=== PATIENT | female | born 1975 | race American Indian/Alaskan Native ===

== ENCOUNTER 2018-09-04 09:20 | Observation (INO) | payer MEDICAID, OTHER ==
[2018-09-04 09:49] LABS: Basophils # (Auto) 0.2 K/mm3 (0.0-0.1); Basophils % (Auto) 1.2 % (0.0-1.8); Eosinophils # (Auto) 0.1 K/mm3 (0.0-0.4); Eosinophils % (Auto) 0.8 % (0.0-4.3); Lymphocytes # (Auto) 1.4 K/mm3 (1.2-5.4); Lymphocytes % (Auto) 10.9 % (13.4-35.0); Mean Corpuscular HGB Conc 27 % (30-34); Monocytes # (Auto) 0.6 K/mm3 (0.0-0.8); Monocytes % (Auto) 4.9 % (0.0-7.3); Platelet Count 600 K/mm3 (140-440)
[2018-09-04 09:59] LABS: Hematocrit 16.4 % (30.3-42.9); Hemoglobin 4.4 gm/dl (10.1-14.3); Mean Corpuscular Volume 57 fl (79-97); Red Cell Distribution Width 21.9 % (13.2-15.2)
[2018-09-04] MEDS ORDERED: NACL 0.9% 500 ML 500 ML IV ONE (10:06)
[2018-09-04 10:35] LABS: Color,Urine Red (Yellow)
[2018-09-04 10:36] LABS: Bilirubin,Urine NEG (Negative); Blood,Urine LG (Negative); Mucus,Urine FEW /HPF; Urobilinogen,Urine < 2.0 mg/dL (<2.0)
[2018-09-04 10:44] LABS: Protein,Urine >500 mg/dL (Negative); RBC,Urine > 182.0 /HPF (0.0-6.0); WBC,Urine < 1.0 /HPF (0.0-6.0)
[2018-09-04] MEDS ORDERED: TORADOL IV ONE ×2 (11:06→11:27)
[2018-09-04] MEDS ORDERED: PERCOCET 5/325 PO ONE (11:07)
--- NOTE | 2018-09-04 11:13 | Emergency Department Report ---
ED General Adult HPI - General Chief complaint: Dizziness Stated complaint: DIZZINESS Time Seen by Provider: 09/04/18 10:00 Source: patient, RN notes reviewed Mode of arrival: Ambulatory Limitations: No Limitations - History of Present Illness Initial comments: This is a 43-year-old female. The patient is not known to this provider previously The patient moved here from [place]. She does not have a primary care doctor. 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 She has a history of fibroids. She is taking iron sulfate supplementation, as well as oral contraceptives. She presents to the emergency room today with complaint of crampy vaginal bleeding. bleeding is present for 4 months. It is associated with nontraumatic lower back pain The patient describes heavy vaginal bleeding and clots, lightheadedness, fatigue, malaise, shortness of breath. Her symptoms are constant, and the worsening with physical exertion and decreased with rest. She has not been able to follow up as an outpatient secondary to insurance issues. She reports that she is amenable to packed red blood cell transfusion. She reports that she is not . -: Sudden, month(s) Location: back, abdomen Severity scale (0 -10): 8 Quality: aching Consistency: other Improves with: other Worsens with: other - Related Data Allergies Allergy/AdvReac Type Severity Reaction Status Date / Time No Known Allergies Allergy Unverified 09/04/18 09:23 ED Review of Systems ROS: Stated complaint: DIZZINESS Other details as noted in HPI Constitutional: malaise, weakness Eyes: denies: vision change ENT: denies: epistaxis Respiratory: denies: cough Cardiovascular: syncope Gastrointestinal: abdominal pain. denies: vomiting Genitourinary: abnormal menses Musculoskeletal: back pain Skin: denies: lesions Neurological: weakness Psychiatric: anxiety ED Past Medical Hx - Past Medical History Hx Hypertension: Yes Additional medical history: fibroids, anemia - Surgical History Hx Appendectomy: Yes Additional Surgical History: left leg, tubal ligation - Social History Smoking Status: Former Smoker Substance Use Type: Alcohol, Marijuana ED Physical Exam - General Limitations: No Limitations General appearance: alert, anxious, in distress - Head Head exam: Present: atraumatic, normocephalic - Eye Eye exam: Present: normal appearance, EOMI, other (bilateral conjunctiva are noted to be pale). Absent: nystagmus - ENT ENT exam: Present: normal exam, normal orophraynx, mucous membranes moist, normal external ear exam - Neck Neck exam: Present: normal inspection, full ROM. Absent: tenderness, meningismus - Respiratory Respiratory exam: Present: normal lung sounds bilaterally. Absent: respiratory distress, wheezes, rales, rhonchi, stridor, chest wall tenderness - Cardiovascular Cardiovascular Exam: Present: normal rhythm, tachycardia, normal heart sounds. Absent: systolic murmur, diastolic murmur, rubs, gallop - GI/Abdominal GI/Abdominal exam: Present: soft. Absent: distended, tenderness, guarding, rebound, rigid, pulsatile mass - Rectal Rectal exam: Present: other (chaperoned by nurse Chantell Bonilla) - External exam: Present: normal external exam. Absent: erythema, swelling Speculum exam: Absent: vaginal bleeding - Extremities Exam Extremities exam: Present: normal inspection, full ROM, other (delayed capillary refill noted). Absent: tenderness, normal capillary refill (2+ pulses noted in the bilateral upper, lower extremities. Compartments soft. No long bony tenderness. The pelvis is stable.), pedal edema, joint swelling - Back Exam Back exam: Present: normal inspection, full ROM. Absent: tenderness, CVA tenderness (R), paraspinal tenderness, vertebral tenderness - Neurological Exam Neurological exam: Present: alert, other (Extraocular movements intact. Tongue midline. No facial droop. Facial sensation intact to light touch in the V1, V2, V3 distribution bilaterally. 5 and 5 strength in 4 extremities.. Sensation is intact to light touch in 4 extremities.). Absent: motor sensory deficit - Psychiatric Psychiatric exam: Present: anxious - Skin Skin exam: Present: warm, dry, intact, normal color. Absent: rash ED Course Vital Signs 09/04/18 09/04/18 09/04/18 09:30 10:01 10:15 Temperature 98.1 F Pulse Rate 118 H 93 H 92 H Respiratory 20 14 15 Rate Blood Pressure 131/86 Blood Pressure 135/78 [Right] O2 Sat by Pulse 100 100 Oximetry 09/04/18 09/04/18 09/04/18 10:30 10:45 11:01 Temperature Pulse Rate 87 109 H 117 H Respiratory 12 12 17 Rate Blood Pressure 135/76 135/76 134/62 Blood Pressure [Right] O2 Sat by Pulse 99 97 Oximetry 09/04/18 09/04/18 11:15 11:30 Temperature Pulse Rate 93 H 109 H Respiratory 8 L 16 Rate Blood Pressure 134/62 132/63 Blood Pressure [Right] O2 Sat by Pulse 100 98 Oximetry - Reevaluation(s) Reevaluation #1: 09/04/18 11:15 Differential diagnosis, including but not limited to: Symptomatic anemia, fibroids, dehydration, electrolyte derangement Assessment and plan: 43-year-old female with history and physical examination suggesting symptomatic anemia, likely secondary to chronic vaginal bleeding, presumed reported fibroids. Patient is hemodynamically stable. Tachycardia resolved. Belly soft on repeat exam. No active bleeding noted. She is amenable to packed red blood cell transfusions. Additional screening laboratory studies have been requested. Transvaginal ultrasound has been ordered. Dr. Tavera of the gynecology service to admit the patient for symptomatic ane katie. ED Medical Decision Making - Lab Data Result diagrams: 09/04/18 09:31 09/04/18 10:39 Vital Signs 09/04/18 09:30 Temperature 98.1 F Pulse Rate 118 H Respiratory 20 Rate Blood Pressure 135/78 [Right] O2 Sat by Pulse 100 Oximetry Lab Results 09/04/18 09/04/18 Range/Units 09:31 10:06 WBC 12.7 H (4.5-11.0) K/mm3 RBC 2.90 L (3.65-5.03) M/mm3 Hgb 4.4 L* (10.1-14.3) gm/dl Hct 16.4 L* (30.3-42.9) % MCV 57 L (79-97) fl MCH 15 L (28-32) pg MCHC 27 L (30-34) % RDW 21.9 H (13.2-15.2) % Plt Count 600 H (140-440) K/mm3 Lymph % (Auto) 10.9 L (13.4-35.0) % [place] % (Auto) 4.9 (0.0-7.3) % Eos % (Auto) 0.8 (0.0-4.3) % Baso % (Auto) 1.2 (0.0-1.8) % Lymph # 1.4 (1.2-5.4) K/mm3 [place] # 0.6 (0.0-0.8) K/mm3 Eos # 0.1 (0.0-0.4) K/mm3 Baso # 0.2 H (0.0-0.1) K/mm3 Seg Neutrophils % 82.2 H (40.0-70.0) % Seg Neutrophils # 10.5 H (1.8-7.7) K/mm3 Urine Color Red (Yellow) Urine Turbidity Cloudy (Clear) Urine pH 6.0 (5.0-7.0) Ur Specific [place] 1.030 (1.003-1.030) Urine Protein >500 (Negative) mg/dL Urine Glucose (UA) 50 (Negative) mg/dL Urine Ketones Tr (Negative) mg/dL Urine Blood Lg (Negative) Urine Nitrite Neg (Negative) Urine Bilirubin Neg (Negative) Urine Urobilinogen < 2.0 (<2.0) mg/dL Ur Leukocyte Esterase Neg (Negative) Urine WBC (Auto) < 1.0 (0.0-6.0) /HPF Urine RBC (Auto) > 182.0 (0.0-6.0) /HPF U Epithel Cells (Auto) 6.0 (0-13.0) /HPF Urine Mucus Few /HPF - EKG Data -: EKG Interpreted by Ny EKG shows normal: sinus rhythm Rate: normal - EKG Data When compared to previous EKG there are: previous EKG unavailable 09/04/18 11:13 This is a sinus rhythm, 84 bpm, normal axis, QTC prolonged, borderline high left ventricular voltage, not having chest pain, this is an abnormal EKG. This is n ot consistent with ST elevation myocardial infarction. - Radiology Data Radiology results: pending, report reviewed, image reviewed Print Report Referring Physician: KATERINE JIN Patient Name: SCOOTER MORENO Date of : 1975 Sex: Female Report Date: 2018-09-04 Report Status: Finalized Findings [facility] [address] [place] [address] Ultrasound Report Signed Patient: SCOOTER MORENO MR#: [id number] : 1975 Acct:[id number] Age/Sex: 43 / F ADM Date: 09/04/18 Loc: ED Attending Dr: Ordering Physician: KATERINE JIN MD Date of Service: 09/04/18 Procedure(s): US transvaginal Accession Number(s): [id number] cc: KATERINE JIN MD Contrast vaginal sonography: History: Vaginal bleeding. Findings: Uterus dasia 11.5 x 7.6 x 8 cm. Endometrial thickness 10 mm. There is a central mass identified within the uterus involving the endometrium and measuring 5 x 6.7 x 6.4 cm. Predominantly solid. Right ovary 2.4 x 1.7 x 2.9 cm. No mass. Left ovary 3.5 a 1.4 x 2.7 cm. No mass. No fluid in the cul-de-sac. Impression: Mass within the central part of the body of the uterus near the fundus. Further evaluation recommended. Transcribed By: PTP Dictated By: NEVA BARNETT MD Electronically Authenticated By: NEVA BARNETT MD Signed Date/Time: 09/04/18 1231 Critical Care Time: Yes Critical care time in (mins) excluding proc time.: 35 Critical care attestation.: If time is entered above; I have spent that time in minutes in the direct care of this critically ill patient, excluding procedure time. ED Disposition Clinical Impression: Symptomatic anemia, Vaginal bleeding Disposition: DC-09 OP ADMIT IP TO THIS HOSP Is pt being admited?: Yes Condition: Good Referrals: VALENTÍN NUNEZ MD [Primary Care Provider] - 3-5 Days
[2018-09-04 11:19] LABS: INR 0.89 (0.87-1.13)
[2018-09-04 11:38] LABS: BUN/Creatinine Ratio 17; Blood Urea Nitrogen 12 mg/dL (7-17); Calcium 8.8 mg/dL (8.4-10.2); Hemolysis Index 0
--- NOTE | 2018-09-04 12:52 | Ultrasound Report ---
Contrast vaginal sonography: History: Vaginal bleeding. Findings: Uterus dasia 11.5 x 7.6 x 8 cm. Endometrial thickness 10 mm. There is a central mass identified within the uterus involving the endometrium and measuring 5 x 6.7 x 6.4 cm. Predominantly solid. Right ovary 2.4 x 1.7 x 2.9 cm. No mass. Left ovary 3.5 a 1.4 x 2.7 cm. No mass. No fluid in the cul-de-sac. Impression: Mass within the central part of the body of the uterus near the fundus. Further evaluation recommended.
[2018-09-04] MEDS ORDERED: NACL 0.9% 250ML 250 ML ONE (14:43)
[2018-09-04] MEDS ORDERED: TYLENOL PO PRN (14:47)
[2018-09-04] MEDS ORDERED: ALUM-MAG HYDROX-SIMETH 200-200-20MG/5ML PO PRN (14:47)
[2018-09-04] MEDS ORDERED: SODIUM CHLORIDE FLUSH SYRINGE 10 ML IV PRN (14:47)
[2018-09-04] MEDS ORDERED: NACL 0.9% 1000 ML 1,000 ML IV SCH (14:47)
--- NOTE | 2018-09-04 16:25 | Short Stay Summary ---
<MARIANGEL THOMAS G - Last Filed: 09/04/18 17:09> Short Stay Documentation Date of service: 09/04/18 Narrative H&P: 43 YOBF seen in ER with c/o long h/o menorrhagia with receently passing large clots. Patient states she has had vaginal bleeding increased over the past 2 months. Work up in ER revealed h/h of 4.4/16.4 and pelvic ultrasound with a central uterine mass measuring 5.0x6.7x6.4cm. 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 Patient is being admitted for blood transfusion - History Past Medical History: hypertension, other (Fibroids dx 01/2018) Past Surgical History: appendectomy (Laparotomy ), Other (Left femur (dana in place, [facility] Cholecystectomy, LTL(2004)) Social history: smoking (Quit 2017 after 20 yr use), full code - Allergies and Medications Current Medications: Allergies No Known Allergies Allergy (Unverified 09/04/18 09:23) Active Medications Acetaminophen (Tylenol) 650 mg PO Q4H PRN PRN Reason: Pain MILD(1-3)/Fever >100.5/ECKERT Al Hydrox/Mg Hydrox/Simethicone (Alum-Mag Hydrox-Simeth [id number]/5ml) 30 ml PO Q4H PRN PRN Reason: Indigestion Sodium Chloride (Nacl 0.9% 1000 Ml) 1,000 mls @ 75 mls/hr IV DIRECT ROSALBA Sodium Chloride (Sodium Chloride Flush Syringe 10 Ml) 10 ml IV PRN PRN PRN Reason: LINE FLUSH - Physical exam General appearance: no acute distress Integumentary: no rash Breasts: deferred Heart: Regular rate Gastrointestinal: normal (Soft), normoactive bowel sounds, no tenderness, no guarding, obese, other Female Genitourinary: other (Done in ER no heavy bleeding noted. Presently no blood on her pad x3 hours) Rectal Exam: deferred Extremities: No edema - Disposition Condition at discharge: Good Disposition: DC-01 TO HOME OR SELFCARE - Discharge Diagnoses (1) Symptomatic anemia Status: Acute Comment: Probably secondary to #2. Will transfuse 4 units of PRBCs (2) Vaginal bleeding Status: Acute Comment: Probably secondary to myomas. Bleeding is light at present (3) Mass of uterus determined by ultrasound Status: Acute Comment: Discussed diagnosis and need follow up as outpatient. Our office infromation given (4) Hypertension Status: Acute Qualifiers: Hypertension type: essential hypertension Qualified Code(s): I10 - Essential (primary) hypertension Comment: Will continue her present medications Short Stay Discharge Plan Follow up with: VALENTÍN NUNEZ MD [Primary Care Provider] - 3-5 Days MARIANGEL THOMAS MD [Staff Physician] - 7 Days Prescriptions: Ferrous Sulfate [Ferrous Sulfate 324 MG] 324 mg PO TID #90 tablet. <EL KING - Last Filed: 09/05/18 12:10> Short Stay Documentation - History Past Medical History: other Past Surgical History: Other Social history: smoking - Allergies and Medications Current Medications: Allergies No Known Allergies Allergy (Unverified 09/04/18 09:23) Home Medications Medication Instructions Recorded Confirmed Last Taken Type Blisovi Fe 1.5-30 Tablet 1 tab QDAY 09/04/18 09/04/18 Unknown History Ferrous Sulfate [Ferrous Sulfate 324 mg PO TID 09/04/18 09/04/18 Unknown History 324 MG] hydroCHLOROthiazide [HCTZ] 25 mg PO QDAY 09/04/18 09/04/18 Unknown History Active Medications Acetaminophen (Tylenol) 650 mg PO Q4H PRN PRN Reason: Pain MILD(1-3)/Fever >100.5/ECKERT Al Hydrox/Mg Hydrox/Simethicone (Alum-Mag Hydrox-Simeth [phone]/5ml) 30 ml PO Q4H PRN PRN Reason: Indigestion Sodium Chloride (Nacl 0.9% 1000 Ml) 1,000 mls @ 75 mls/hr IV DIRECT [facility] Miscellaneous Medication (Blisovi Fe 1.5-30 Tablet) 1 tab PO QDAY [facility] Last Admin: 09/05/18 10:12 Dose: 1 tab Documented by: Miscellaneous Medication (Ferrous Sulfate [Ferrous Sulfate 324 Mg]) 324 mg PO TID [facility] Last Admin: 09/05/18 10:11 Dose: 324 mg Documented by: Miscellaneous Medication (Hydrochlorothiazide [Hctz]) 25 mg PO QDAY [facility] Last Admin: 09/05/18 10:12 Dose: 25 mg Documented by: Sodium Chloride (Sodium Chloride Flush Syringe 10 Ml) 10 ml IV PRN PRN PRN Reason: LINE FLUSH - Hospital course Hospital course: She was admitted and received 4uPRBCs with an appropriate rise in h/h. No complaints today, no distress, she has moderate amount of blood on pad. - Discharge Diagnoses (1) Menorrhagia Status: Chronic Comment: Continue current hormonal therapy (2) Hypertension Status: Chronic Qualifiers: Hypertension type: essential hypertension Qualified Code(s): I10 - [facility] ([facility] hypertension Comment: Will continue her present medications (3) Mass of uterus determined by ultrasound Status: Chronic Comment: Discussed diagnosis and need follow up as outpatient. Our office infromation given (4) Symptomatic anemia Status: Chronic Comment: Probably secondary to #2. Will transfuse 4 units of PRBCs Short Stay Discharge Plan Activity: other (No sex) Weight Bearing Status: Full Weight Bearing Diet: low fat, low cholesterol, low salt
[2018-09-04] MEDS: NON-FORMULARY (Ferrous Sulfate [Ferrous Sulfate 324 Mg] 324 MG) PO SCH (22:05)
[2018-09-04] MEDS ORDERED: LASIX IV ONE (23:14)
[2018-09-04] MEDS ORDERED: TYLENOL PO ONE (23:28)
[2018-09-04] MEDS ORDERED: BENADRYL PO NR (23:45)
[2018-09-05 07:43] LABS: Hemoglobin 8.3 gm/dl (10.1-14.3)
[2018-09-05] MEDS ORDERED: BLISOVI FE PO SCH (10:00)
[2018-09-05] MEDS: NON-FORMULARY (Ferrous Sulfate [Ferrous Sulfate 324 Mg] 324 MG) PO SCH (10:11)
[2018-09-05 17:04] VITALS: BP 125/77
== END 2018-09-05 17:45 | disposition home or self-care (01) ==
LOC: EDBD → ED 09:20 → OB 13:08
PROVIDERS: ADMIT Obstetrics & Gynecology; ATTEND Obstetrics & Gynecology
DX: D64.9 Anemia, unspecified (principal); N85.8 Other specified noninflammatory disorders of uterus; N93.9 Abnormal uterine and vaginal bleeding, unspecified; N92.0 Excessive and frequent menstruation with regular cycle; I10 Essential (primary) hypertension; R42 Dizziness and giddiness; F17.200 Nicotine dependence, unspecified, uncomplicated; Z90.89 Acquired absence of other organs; Z90.49 Acquired absence of other specified parts of digestive tract; Z79.899 Other long term (current) drug therapy
CPT/HCPCS: 36415; 36430; 76830; 80048; 81001; 82550; 83735; 84703; 85014; 85018; 85025; 85610; 86850; 86900; 86901; 86920; 93005; 93010; 93975; 96361; 96374; 96375; 99291; G0378; J1885; J1940; J7030; J7040; J7050; P9016